=== PATIENT | male | born 1940 | race Caucasian/White ===

== ENCOUNTER 2017-03-27 22:19 | Inpatient (IN) | payer MEDICARE, MEDICAID ==
[~2017-03-27] VITALS: Ht 165.1 cm; Wt 67.1 kg
--- NOTE | ~2017-03-27 | EKG ---
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
[2017-03-27 22:20] VITALS: BP 96/68
[2017-03-27 22:54] LABS: HEMATOCRIT 43.2 % (42.0-52.0); HEMOGLOBIN 13.4 gm/dL (14.0-18.0); MCV 100.2 fL (80.0-100.0); MPV 8.1 fl. (7.2-11.1); NUCLEATED RBCS 0 /100WBC; PLATELET COUNT* 212 thou/uL (150-400); RBC 4.31 mil/uL (4.50-6.00); RDW-CV 14.1 % (10.5-14.5); WBC 7.6 thou/uL (4.0-11.0)
[2017-03-27 23:06] LABS: CALCIUM 8.9 mg/dL (8.5-10.1); CREATININE 1.2 mg/dL (0.6-1.3)
[2017-03-27 23:08] LABS: APTT 28.2 Seconds (25.0-31.3); INR 1.1; PROTIME 10.7 Seconds (9.20-11.50)
[2017-03-27 23:17] LABS: ALBUMIN 2.8 g/dL (3.4-5.0); TOTAL BILIRUBIN 0.3 mg/dL (<0.1-1.0); TOTAL PROTEIN 6.6 g/dL (6.4-8.2); TROPONIN-I LEVEL 0.54 ng/mL (<0.06)
[2017-03-27] MEDS ORDERED: PROTONIX40 M1 PO (23:17)
[2017-03-27] MEDS ORDERED: PAROXETINE HCL20 MG PO (23:18)
[2017-03-27] MEDS ORDERED: ASPIR 8181 MG PO (23:18)
[2017-03-27] MEDS ORDERED: MIRALAX17 GM PO (23:18)
[2017-03-27] MEDS ORDERED: CENTRUM SILVER1 EAC2 PO (23:18)
[2017-03-27] MEDS ORDERED: ANECREAM5 GM TOP (23:19)
[2017-03-27] MEDS ORDERED: PROAIR HFA8.5 GM INH (23:20)
[2017-03-27 23:21] LABS: URINE BILIRUBIN NEGATIVE (Negative); URINE BLOOD NEGATIVE (Negative); URINE CLARITY CLEAR; URINE COLOR YELLOW; URINE GLUCOSE-RANDOM NEGATIVE (Negative); URINE KETONES NEGATIVE (Negative); URINE LEUKOCYTES-REFLEX NEGATIVE (Negative); URINE NITRITE-REFLEX NEGATIVE (Negative); URINE PROTEIN NEGATIVE (Negative); URINE SPECIFIC GRAVITY 1.015 (1.005-1.030); URINE UROBILINOGEN 0.2 E.U./dl (0.2-1.0)
[2017-03-27] MEDS ORDERED: HYDROCODONE-AP1 EAC6 PO (23:21)
[2017-03-27] MEDS ORDERED: LEVOTHYROXINE100 MC1 PO (23:21)
[2017-03-27] MEDS ORDERED: ZYRTEC10 M5 PO (23:22)
[2017-03-27] MEDS ORDERED: NITROGLYCERIN0.4 MG SUBLING (23:25)
[2017-03-27] MEDS ORDERED: VENTOLIN HFA 1818 GM INH (23:25)
[2017-03-27] MEDS ORDERED: STIOLTO RESPIMAT4 GM (23:25)
[2017-03-27 23:38] LABS: ABSOLUTE EOSINOPHILS 0.3 thou/uL (0.0-0.7); ABSOLUTE LYMPHOCYTES 0.8 thou/uL (0.8-5.3); ABSOLUTE MONOCYTES 0.6 thou/uL (0.0-1.2); ABSOLUTE NEUTROPHILS 5.9 thou/uL (1.6-8.1); PLATELET ESTIMATE ADEQUATE
[2017-03-27 23:39] LABS: LARGE PLATELETS OCCASIONAL
[2017-03-27 23:39] LABS: INFLUENZA A ANTIGEN None Detected (None Detect); INFLUENZA B ANTIGEN None Detected (None Detect)
[2017-03-28] VITALS (8 sets, daily range): BP systolic 97–142; BP diastolic 53–78
--- NOTE | 2017-03-28 15:07 | 2DMMODE ---
[place] [address] 2 D/M-MODE ECHOCARDIOGRAM Name: CHARLINE,CRICKET R Room: [address] [place] [facility]#: [id number] Admission: 03/28/17 Attend Phys: Ricardo Decker Discharge: Date of : 40 Date of Service: 03/28/17 1506 Report #: [id number] THIS REPORT FOR: //name// APPROVED REPORT Study performed: 03/28/2017 10:54:51 EXAM: Comprehensive 2D, Doppler, and color-flow Echocardiogram Patient Location: In-Patient Room #: 229 Status: routine BSA: 1.74 HR: 89 bpm BP: 106/59 mmHg Rhythm: NSR Other Information Study Quality: Good Indications Elevated Troponin 2D Dimensions LVEF(%): 76.44 (>50%) IVSd: 8.71 (7-11mm) LVOT Diam: 19.63 (18-24mm) LVDd: 42.48 mm PWd: 8.86 (7-11mm) Ascending Ao: 30.71 (22-36mm) LVDs: 23.45 (25-40mm) Aortic Root: 31.88 mm Tuttle's LVEF: 76.44 % Volumes Left Atrial Volume (Systole) LA ESV Index: 21.10 mL/m2 Aortic Valve AoV Peak Ian.: 1.30 m/s AO Peak Gr.: 6.71 mmHg LVOT Max P.36 mmHg AO Mean Gr.: 3.92 mmHg LVOT Mean P.87 mmHg LVOT Max V: 1.36 m/s AO V2 VTI: 21.69 cm LVOT Mean V: 0.91 m/s JESICA (VTI): 3.37 cm2 LVOT V1 VTI: 24.13 cm Mitral Valve E/A Ratio: 0.55 [place] [address] 2 D/M-MODE ECHOCARDIOGRAM Name: CRICKET OLIVIER Room: [address] IN .R.#: [id number] Admission: 03/28/17 Attend Phys: Ricardo Decker Discharge: Date of : 40 Date of Service: 03/28/17 1506 Report #: [id number] MV Decel. Time: 232.06 ms MV E Max Ian.: 0.73 m/s MV PHT: 67.30 ms MVA (PHT): 3.27 cm2 TDI E/Lateral E': 8.11 E/Medial E': 8.11 Medial E' Ian.: 0.09 m/s Lateral E' Ian.: 0.09 m/s Pulmonary Valve PV Peak Ian.: 0.95 m/s PV Peak Gr.: 3.59 mmHg Left Ventricle The left ventricle is normal size. There is normal LV segmental wall motion. There is normal left ventricular wall thickness. Left ventricular systolic function is normal. LVEF is 55-60%. Grade I - abnormal relaxation pattern. Right Ventricle The right ventricle is normal size. The right ventricular systolic function is normal. Atria The left atrium size is normal. The right atrium size is normal. Aortic Valve The aortic valve is normal in structure. No aortic regurgitation is present. There is no aortic valvular stenosis. Mitral Valve There is mitral annular calcification. There is no mitral valve regurgitation noted. No evidence of mitral valve stenosis. Tricuspid Valve The tricuspid valve is normal in structure. There is no tricuspid valve regurgitation noted. Pulmonic Valve The pulmonary valve is normal in structure. There is no pulmonic valvular regurgitation. Great Vessels The aortic root is normal in size. IVC is normal in size and collapses with >50% [place] [address] 2 D/M-MODE ECHOCARDIOGRAM Name: CRICKET OLIVIER Room: [address] [place] [facility]#: [id number] Admission: 03/28/17 Attend Phys: Ricardo Decker Discharge: Date of : 40 Date of Service: 03/28/17 1506 Report #: [id number] Pericardium There is no pericardial effusion. <Conclusion> The left ventricle is normal size. There is normal left ventricular wall thickness. Left ventricular systolic function is normal. LVEF is 55-60%. Grade I - abnormal relaxation pattern. <ELECTRONICALLY SIGNED> By: Arpan Pillai MD, FACC 03/28/17 1506 1506 1506 Arpan Pillai MD, FACC /INF
--- NOTE | 2017-03-28 16:45 | EKG ---
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 : 1940 Requested By: Anderson Gould Order Number: [id number] MD: Juarez Go Measurements Intervals [place] Rate: 84 P: 88 MD: 129 QRS: 56 QRSD: 94 T: 30 QT: 392 QTc: 464 Interpretive Statements Sinus rhythm septal infarct, old Baseline wander in lead(s) II,III,aVF No previous ECG available for comparison Electronically Signed On 03-28-2017 16:44:54 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
--- NOTE | 2017-03-28 16:50 | EKG ---
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
[2017-03-28 20:35] LABS: HEMATOCRIT 38.7 % (42.0-52.0); HEMOGLOBIN 12.7 gm/dL (14.0-18.0); MCH 31.3 pg (26.0-34.0); MCHC 32.9 g/dL (28.0-37.0); MPV 7.8 fl. (7.2-11.1); RBC 4.07 mil/uL (4.50-6.00); RDW-CV 13.3 % (10.5-14.5); WBC 6.5 thou/uL (4.0-11.0)
[2017-03-28 20:38] LABS: MCV 95.1 fL (80.0-100.0)
[2017-03-29] VITALS (7 sets, daily range): BP systolic 88–115; BP diastolic 50–67
[2017-03-29 02:15] LABS: HEMATOCRIT 39.7 % (42.0-52.0); HEMOGLOBIN 12.9 gm/dL (14.0-18.0); MCH 31.1 pg (26.0-34.0); MCHC 32.5 g/dL (28.0-37.0); MCV 95.8 fL (80.0-100.0); MPV 7.8 fl. (7.2-11.1); RBC 4.14 mil/uL (4.50-6.00); RDW-CV 13.5 % (10.5-14.5); WBC 6.5 thou/uL (4.0-11.0)
[2017-03-30] VITALS (7 sets, daily range): BP systolic 67–142; BP diastolic 43–76
[2017-03-31 00:30] VITALS: BP 98/54
[2017-03-31 04:21] VITALS: BP 90/58
[2017-03-31 05:34] LABS: HEMATOCRIT 37.8 % (42.0-52.0); HEMOGLOBIN 12.4 gm/dL (14.0-18.0); MCH 31.3 pg (26.0-34.0); MCHC 32.9 g/dL (28.0-37.0); MCV 94.9 fL (80.0-100.0); MPV 7.7 fl. (7.2-11.1); RBC 3.98 mil/uL (4.50-6.00); RDW-CV 13.4 % (10.5-14.5); WBC 4.8 thou/uL (4.0-11.0)
[2017-03-31 08:00] VITALS: BP 110/70
[2017-03-31] MEDS ORDERED: TOPROL XL25 MG PO (11:08)
[2017-03-31 11:23] VITALS: BP 92/53
[2017-03-31 12:30] VITALS: BP 93/63
--- NOTE | 2017-04-03 08:34 | CON ---
[address] [address] CONSULTATION Name: CHARLINE,CRICKET Rossy Room: [address] IN M.R.#: [id number] Admission: 03/28/17 Attend Phys: Matt Vargas Discharge: 03/31/17 Date of : 40 Report #: [id number] THIS REPORT FOR: //name// CC: IKE physician/PCP [facility] Ricardo Decker INDICATION: Chest pain and elevated troponin. HISTORY OF PRESENT ILLNESS: The patient is a 76-year-old gentleman with history of coronary artery bypass grafting remotely. He follows with Cardiology at the [facility]. The patient was admitted through the Emergency Room with complaints of weakness, shortness of breath and chest discomfort. He has a tracheostomy and communication is quite difficult. From what I gather, he has been having intermittent chest discomfort since at least early this morning, at night yesterday. He had some associated nausea, but no vomiting. He denied any diaphoresis. There was some radiation toward the jaw. A 12-lead EKG showed sinus rhythm with Q-waves in V1and V2 and subtle ST elevation in V1, V2, did not appear acute. His initial troponin was 0.54. He is not having orthopnea or paroxysmal nocturnal dyspnea. He reports occasional swelling of the lower extremities. Cardiac risk factors include a remote history of smoking, family history of coronary artery disease. He denies diabetes or dyslipidemia. PAST MEDICAL HISTORY: 1. Coronary artery disease. 2. Throat cancer, status post tracheostomy. 3. COPD. 4. Hypothyroidism. PAST SURGICAL HISTORY: 1. Six vessel bypass. 2. Tracheostomy. FAMILY HISTORY: The patient's father had heart attack at 56 and with that. SOCIAL HISTORY: The patient is . He does not smoke. He does not drink alcohol. ALLERGIES: No known drug allergies. HOME MEDICATIONS: Albuterol 1-2 puffs q.4 hours p.r.n., aspirin 81 mg daily, Zyrtec 10 mg daily, hydrocodone/acetaminophen 5/325 q.4 hours p.r.n., Synthroid 100 mcg daily, lidocaine cream 5 grams topically daily, multivitamin, Centrum Silver Ultra Men's 1 daily, Nitrostat p.r.n., Protonix 40 mg daily, Paxil 20 mg daily, MiraLax 17 grams at bedtime p.r.n. Stiolto [place] [address] CONSULTATION Name: CRICKET OLIVIER Room: [address]#: [id number] Admission: 03/28/17 Attend Phys: Matt Vargas Discharge: 03/31/17 Date of : 40 Report #: [id number] REVIEW OF SYSTEMS: A 14-point review of systems is positive for COPD, hypothyroidism, tongue, throat and shoulder cancer with resection. Seasonal allergies and reading glasses without acute visual loss. Otherwise, 14-point review of systems is unremarkable. PHYSICAL EXAMINATION: VITAL SIGNS: Blood pressure 106/59, pulse 84 and regular. GENERAL: This is a thin elderly male who does not appear to be in distress. HEENT: The patient has glasses on. Extraocular muscles intact. NECK: Shows tracheostomy in place. CHEST: Reveals diminished breath sounds without wheezes or rales. CARDIAC: Reveals a regular rhythm. I do not appreciate obvious gallop or murmur. ABDOMEN: Reveals normal bowel sounds. The abdomen is soft and nontender. EXTREMITIES: Show no edema. Peripheral pulses palpable. LABORATORY DATA: Reviewed. Sodium 136, potassium 4.0, chloride 99, bicarbonate 35, BUN 15, creatinine 1.2, serum glucose 98. LFTs within normal limits. Initial troponin 0.54 and then subsequently 0.39 and 0.30. NT-proBNP 4464. TSH 21.847. White blood cell count 7.6, hemoglobin 13.4, platelet count 212,000. Chest x-ray shows left diaphragm elevation and minimal atelectasis in the left base. A 12-lead EKG shows sinus rhythm with ST elevation in V1, V2 that is subtle and Q-waves in V1 and V2. These do not appear acute. Echocardiogram was obtained and results pending. IMPRESSION AND RECOMMENDATIONS: 1. Elevated troponin consistent with non-ST elevation myocardial infarction. The patient had a recent stress test. I have requested those outside records prior to further evaluation at this time. We will follow up on echocardiogram. Continue daily aspirin. Would add heparin as tolerated. Continue nitroglycerin p.r.n. Check fasting lipid profile. 2. Coronary artery disease by history as outlined above. Would recommend low dose beta jonathan as tolerated. Would recommend daily aspirin as he has already receiving. 3. Chest discomfort, etiology not entirely clear. Appears to be ongoing with diminishing troponins. This could be cardiac or gastrointestinal. We will follow clinically. 4. Hypothyroidism, on replacement. <ELECTRONICALLY SIGNED> By: Arpan Pillai MD, [facility] 04/03/17 0834 1125 [id number] Centerchrist Pillai MD, FACC /nt
--- NOTE | 2017-04-05 07:22 | CON ---
[address] [address] CONSULTATION Name: CHARLINE,CRICKET Rossy Room: [address] IN M.R.#: [id number] Admission: 03/28/17 Attend Phys: Matt Vargas Discharge: 03/31/17 Date of : 40 Report #: [id number] THIS REPORT FOR: //name// CC: UNKNOWN LAYLA Decker DICTATED BY: Sharmila ROMO DATE OF SERVICE: 03/30/2017 REASON FOR CONSULTATION: Carotid artery stenosis. CONSULTING PHYSICIAN: Dr. Martin. HISTORY OF PRESENT ILLNESS: The patient is a 76-year-old male who is known to our service from a recent admission at [facility]. He was hospitalized earlier this month at [facility] after a syncopal episode at home. He was alert and oriented on arrival of EMS, but found to have an oxygen saturation of 83%. He was treated for pneumonia with acute bronchitis while at [facility]. A carotid duplex was obtained during his admission due to his syncopal episode, which demonstrated an occlusion of the left internal carotid artery with greater than 70% stenosis in the right internal carotid artery. The patient reported that he was aware of the left ICA occlusion for several years. He has a history of throat cancer status post laryngectomy and tracheostomy. He has also undergone radiation to the neck. He is not a candidate for a carotid endarterectomy due to his history of radiation as well as the tortuosity of his right internal carotid artery. Carotid artery stenting was discussed with the patient, but he had previous arrangements to follow up in [facility] and did not want to consider operative options locally at that time. He was asymptomatic from his carotid disease, has continued to deny any cerebrovascular accident or transient ischemic attack type symptoms. He was ultimately discharged to home with home health care. He presented to the Emergency Department this admission after a fall at home with complaints of continued weakness. He currently reports he generally does not feel well. He reports mild nausea, mild headache. He denies any chest pain, fevers, chills or aching. He does report some mild shortness of air. He uses a voice enhancer to speak due to his trach status post laryngectomy. A CT of the head and neck was obtained this admission, which again demonstrates the occlusion of the left internal carotid artery with high grade stenosis of the right internal carotid artery. 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 We have been asked to evaluate the patient and give our opinion regarding his carotid artery stenosis. PAST MEDICAL HISTORY: 1. Throat cancer status post laryngectomy and tracheostomy. 2. [place] [address] CONSULTATION Name: CRICKET OLIVIER Room: [address] IN M.R.#: [id number] Admission: 03/28/17 Attend Phys: Matt Vargas Discharge: 03/31/17 Date of : 40 Report #: [id number] 3. Left carotid artery occlusion with right carotid artery stenosis. 4. Recent pneumonia. 5. Hypothyroidism. 6. Chronic obstructive pulmonary disease. 7. Coronary artery disease. PAST SURGICAL HISTORY: 1. Six-vessel bypass. 2. Tracheostomy and laryngectomy. 3. PEG tube placement. FAMILY HISTORY: His father at the age of 56 from a myocardial infarction. SOCIAL HISTORY: He is a nonsmoker, no alcohol or illicit drug use. ALLERGIES: No known drug allergies. HOME MEDICATIONS: 1. Albuterol 1-2 puffs every 4 hours as needed for shortness of air. 2. Aspirin 81 mg daily. 3. Zyrtec 10 mg daily. 4. [place] 5/325 mg every 4 hours as needed for pain. 5. Synthroid 100 mcg daily. 6. Lidocaine cream 5 grams topically daily. 7. Multivitamin daily. 8. Centrum Silver Ultra Men's multivitamin once daily. 9. Nitrostat as needed for chest pain. 10. Protonix 40 mg daily. 11. Paxil 20 mg daily. 12. MiraLax 17 grams at bedtime as needed for constipation. 13. Stiolto Respimat inhaler daily. REVIEW OF SYSTEMS: A 12-point review of systems has been reviewed and is negative except for the above-mentioned in the history of present illness. PHYSICAL EXAMINATION: VITAL SIGNS: Temperature 36.8, heart rate 84, respiratory rate 24, blood pressure 109/74, oxygen saturation 98% on trach mask at 8 liters. GENERAL: He is alert and oriented and in no acute distress. HEENT: Head is normocephalic, atraumatic. NECK: Supple with a tracheostomy in place. 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 HEART: Regular rate and rhythm. CHEST: Lungs are diminished throughout. ABDOMEN: Soft, mild generalized tenderness, hypoactive bowel sounds. A PEG tube is in place to the [place] [address] CONSULTATION Name: CRICKET OLIVIER Room: [address] IN [place].#: [id number] Admission: 03/28/17 Attend Phys: Matt Vargas Discharge: 03/31/17 Date of : 40 Report #: [id number] EXTREMITIES: Palpable bilateral radial, femoral and 1+ dorsalis pedis pulses. He has a 2+ right PT pulse, the left PT is difficult to palpate. There is a small fluid filled bulla with mild erythema just distal to the lateral malleolus on the left. There are 2 small areas of dry eschar on the medial aspect of the right great toe. NEUROLOGIC: Alert and oriented with no focal neurologic deficits. LABORATORY DATA: Hemoglobin 12.9, hematocrit 39.7, white blood cell count 6.5, platelets 198. Sodium 136, potassium 4.0, chloride 99, CO2 of 35, BUN 15, creatinine 1.2, glucose 98. ASSESSMENT AND PLAN: 1. Carotid artery stenosis with a known left internal carotid artery occlusion, greater than 70% stenosis on the right with a tortuous internal carotid artery. He is not a candidate for carotid endarterectomy due to his history of neck radiation. He would be a candidate for a right carotid artery stent. I discussed that our service can do carotid artery stenting at [facility] if he would like to proceed with surgical intervention more locally after his acute illness has resolved. He states he would undergo surgical intervention at the [facility], but is unsure if he would go to [facility]. He had previously planned on following up at [facility] as scheduled. He is currently asymptomatic. Continue antiplatelet therapy with aspirin for stroke risk reduction. I again discussed with the patient that he is at high risk for stroke given his carotid disease. He states he understands. 2. Recent pneumonia, now with atelectasis on chest x-ray. 3. Elevated troponin, currently being followed by Cardiology, felt to be consistent with a non-ST elevated myocardial infarction. 4. Recurrent syncope. 5. History of throat cancer, status post laryngectomy and tracheostomy. We thank you for the opportunity to participate in the care of the patient. Please feel free to contact our office with any questions or concerns. <ELECTRONICALLY SIGNED> By: Lawrence Meeks DO 04/05/17 0722 1311 [id number] Meeks DO /nt
== END 2017-03-31 16:04 | disposition home health service (06) | DRG 280 ==
LOC: M.ERS 22:19 → M.TBA-ER 03-28 00:05 → M.2W 03-28 00:05
PROVIDERS: Family Medicine; Internal Medicine; Internal Medicine Cardiovascular Disease; ADMIT Internal Medicine
DX: I21.4 Non-ST elevation (NSTEMI) myocardial infarction (principal); J96.00 Acute respiratory failure, unspecified whether with hypoxia or hypercapnia; R65.10 Systemic inflammatory response syndrome (SIRS) of non-infectious origin without acute organ dysfunction; J98.11 Atelectasis; L98.498 Non-pressure chronic ulcer of skin of other sites with other specified severity; F03.90 Unspecified dementia, unspecified severity, without behavioral disturbance, psychotic disturbance, mood disturbance, and anxiety; I25.10 Atherosclerotic heart disease of native coronary artery without angina pectoris; J44.9 Chronic obstructive pulmonary disease, unspecified; E03.9 Hypothyroidism, unspecified; I65.23 Occlusion and stenosis of bilateral carotid arteries; K14.9 Disease of tongue, unspecified; Z82.49 Family history of ischemic heart disease and other diseases of the circulatory system; Z85.89 Personal history of malignant neoplasm of other organs and systems; Z93.0 Tracheostomy status; Z79.899 Other long term (current) drug therapy; Z95.1 Presence of aortocoronary bypass graft; Z93.1 Gastrostomy status